=== PATIENT | male | born 1985 | race Hispanic/Latino ===

== ENCOUNTER 2023-08-29 12:12 | Emergency (ER) | payer OTHER ==
[2023-08-29] MEDS ORDERED: Lidocaine 1% PF 5 ML VIAL ONE (12:22)
[2023-08-29] MEDS ORDERED: Acetaminophen 325 MG TAB ONE (13:04)
== END 2023-08-29 13:41 | disposition home or self-care (01) ==
LOC: ERS 12:12 → EEVIPCON 12:12 → ERS 13:41
DX: S41.112A Laceration without foreign body of left upper arm, initial encounter (principal); S09.90XA Unspecified injury of head, initial encounter; I10 Essential (primary) hypertension; X58.XXXA Exposure to other specified factors, initial encounter
CPT/HCPCS: 12002; 70450